=== PATIENT | female | born 1950 | race Caucasian/White ===

== ENCOUNTER → 2018-01-23 08:50 | Outpatient (CLI) | payer MEDICARE, MEDICAID, SELFPAY ==
--- NOTE | 2018-01-23 08:56 | XR_ITS ---
XR DEXA axial skeleton HISTORY: ITS.REASON: POST MENOPAUSAL ORDERING PHYSICIAN: Elver Lim MD PATIENT AGE: 67 years FINDINGS: The BMD measured at the lumbar spineis 0.723 g/cm squared with a T score of -3.8. This is considered osteoporotic according to the World Health Organization criteria. Fracture risk is high. Treatment recommended. The mean hip density has a T score of -2.6 also consistent with osteoporosis.. IMPRESSION: Osteoporosis with high fracture risk. Treatment recommended. Suggest progress exam January 2019
== END ==
PROVIDERS: Family Provider Internal Medicine Adolescent Medicine; PCP Internal Medicine Adolescent Medicine; Visit Provider Internal Medicine Adolescent Medicine
DX: Z78.0 Asymptomatic menopausal state (principal); Z13.820 Encounter for screening for osteoporosis
CPT/HCPCS: 77080

== ENCOUNTER → 2018-04-17 12:30 | Outpatient (CLI) | payer MEDICARE, MEDICAID, SELFPAY ==
--- NOTE | 2018-04-17 12:39 | XR_ITS ---
EXAM: XR lumbar spine min 4V HISTORY: ITS.REASON: MACHANICAL LOW BACK PAIN ORDERING PHYSICIAN: Elver Lim MD PATIENT AGE: 67 years COMPARISON: None FINDINGS: Normal alignment. No fracture or dislocation. No lytic or blastic change. Minimal endplate hypertrophic changes are present superiorly at L3 and L4. There slight increased density along the superior endplate of L3 but no significant compressive change. The disc spaces are well-preserved. IMPRESSION: Minimal degenerative change, no acute finding
--- NOTE | 2018-04-17 12:39 | XR_ITS ---
XR chest 2V HISTORY: ITS.REASON: CHEST WALL PAIN ORDERING PHYSICIAN: Elver Lim MD PATIENT AGE: 67 years COMPARISON: None FINDINGS: The cardiomediastinal silhouette and pulmonary vascularity are within normal limits. The lungs are clear without infiltrates, suspicious nodules, or pleural effusions. No acute bony abnormalities. IMPRESSION: Negative chest, no acute finding
--- NOTE | 2018-04-17 12:39 | XR_ITS ---
EXAM: XR thoracic spine 3V HISTORY: ITS.REASON: ACUTE BILAT THORACIC BACK PAIN Comparison: None FINDINGS: There is minimal mid thoracic curvature convex right. No fracture or dislocation. No significant degenerative change. No lytic or blastic change. IMPRESSION: Minimal dextroscoliosis otherwise negative
== END ==
PROVIDERS: PCP Internal Medicine Adolescent Medicine; Visit Provider Internal Medicine Adolescent Medicine
DX: M54.5 Low back pain (principal); M54.6 Pain in thoracic spine; R07.89 Other chest pain
CPT/HCPCS: 71046; 72072; 72110

== ENCOUNTER → 2020-09-03 09:27 | Outpatient (CLI) | payer MEDICARE, MEDICAID, SELFPAY ==
[2020-09-03 12:39] LABS: Chloride 103 mmol/L (98-107); Sodium 134 mmol/L (136-145)
[2020-09-03 12:40] LABS: Potassium 4.5 mmoL/L (3.5-5.1)
[2020-09-03 12:42] LABS: Blood Urea Nitrogen 16 mg/dl (7-17)
[2020-09-03 12:43] LABS: Anion Gap 13.5 mEq/L (5-15); Calcium 9.4 mg/dl (8.4-10.2); Carbon Dioxide 22 mmol/L (22.0-30.0); Estimated Glomerular Filt Rate 82 ml/min (>60); GFR (African American) 100 ML/MIN (>60); Glucose 86 mg/dl (74-100)
== END ==
PROVIDERS: Visit Provider Internal Medicine Adolescent Medicine
DX: E87.1 Hypo-osmolality and hyponatremia (principal)
CPT/HCPCS: 36415; 80048

== ENCOUNTER → 2020-10-12 13:40 | Outpatient (CLI) | payer MEDICARE, MEDICAID, SELFPAY ==
--- NOTE | 2020-10-12 13:44 | MR_ITS ---
PROCEDURE: MR HEAD/BRAIN WO CON CLINICAL INDICATION: HEADACHE DISORDER Pt c/o vertigo x 2 weeks with h/a and dizziness COMPARISON: No exams were available for comparison TECHNIQUE: Routine multiplanar multi echo sequences are performed without gadolinium enhancement. FINDINGS: No evidence of acute infarction. No midline shift mass effect intracranial hemorrhage or hydrocephalus. The cerebellopontine angles, cerebellum, midbrain, and brainstem have an unremarkable appearance. There are few nonspecific T2 white matter hyperintensities suggesting minimal ischemic gliotic change from microvascular disease. 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 The pituitary, optic chiasm, corpus callosum, and craniocervical junction have an unremarkable appearance. No mastoid effusion or sinus air-fluid level. There is mild generalized atrophy. IMPRESSION: No acute intracranial findings. Thornwaldt cyst Dictated by: Sarbjit Yost MD 10/14/2020 10:31 Sarbjit Yost MD in [place] 10/14/2020 10:31
--- NOTE | 2020-10-12 14:24 | CA_ITS ---
APPROVED REPORT Technician Assistant: Ebony Swain RVT Laterality: Bilateral Study Quality: Good Indications: Dizziness and Vertigo Risk Factors Hypertension: Smoking Doppler Spectral Velocity Analysis ECA (R) 108.00/14.50 cm/s ECA (L) 93.20/18.30 cm/s dICA (R) 102.80/27.00 cm/s dICA (L) 92.30/29.10 cm/s Rosey (R) 106.90/23.90 cm/s Rosey (L) 112.30/42.40 cm/s pICA (R) 97.30/18.20 cm/s pICA (L) 80.70/22.50 cm/s dCCA (R) 66.30/18.20 cm/s dCCA (L) 73.20/17.50 cm/s pCCA (R) 74.90/15.00 cm/s pCCA (L) 110.60/31.60 cm/s Vert (R) 40.80/8.30 cm/s Vert (L) 61.60/19.10 cm/s ICA/CCA 1.61 ICA/CCA 1.53 Findings Study suggests 20-49% stenosis of the right internal cartoid artery. Study suggests 20-49% stenosis of the left internal cartoid artery. Antegrade flow seen bilateral vertebral arteries. Conclusion Study suggests 20-49% stenosis of the right internal cartoid artery. Study suggests 20-49% stenosis of the left internal cartoid artery. Antegrade flow seen bilateral vertebral arteries. Electronically signed by : Sarbjit Yost MD 10/12/2020 18:50:16
== END ==
PROVIDERS: PCP Internal Medicine Adolescent Medicine; Visit Provider Internal Medicine Adolescent Medicine
DX: R42 Dizziness and giddiness (principal); R51.9 Headache, unspecified
CPT/HCPCS: 70551; 93880

== ENCOUNTER → 2021-01-25 13:40 | Outpatient (CLI) | payer MEDICARE, MEDICAID, SELFPAY ==
--- NOTE | 2021-01-25 13:42 | XR_ITS ---
PROCEDURE: XR DEXA AXIAL SKELETON CLINICAL HISTORY: OSTEOPOROSIS COMPARISON: [facility] DEX[facility]X XR DEXA axial skeleton from 01/23/2018 FINDINGS: The right hip BMD is 0.624 with a T-score of -2.0. The left hip BMD is 0.615 with a T-score of -2.7. The lumbar spine BMD is 0.703 with a T-score of -3.1. Previously the lowest bone density was in the spine with a T-score of -3.8 IMPRESSION: This patient is considered osteoporotic according to the World Health Organization criteria. Fracture risk is high. Treatment is advised. Based on these results a follow-up exam is recommended in 1 year. Dictated by: Sarbjit Yost MD 01/27/2021 08:25 Sarbjit Yost MD in [place] 01/27/2021 08:25
== END ==
PROVIDERS: PCP Internal Medicine Adolescent Medicine; Visit Provider Internal Medicine Adolescent Medicine
DX: M81.0 Age-related osteoporosis without current pathological fracture (principal)
CPT/HCPCS: 77080

== ENCOUNTER 2021-06-28 10:36 | Emergency (ER) | payer MEDICARE, MEDICAID, SELFPAY ==
--- NOTE | 2021-06-28 10:47 | XR_ITS ---
PROCEDURE: XR RIBS LT MIN 3V W CXR1V CLINICAL INDICATION: trauma Posttraumatic pain COMPARISON: CR CXR2V XR chest 2V from 04/17/2018 FINDINGS: Frontal view of the chest shows no acute finding. There is mild prominence of the interstitial markings. Multiple views the left ribs show no obvious fracture. No lytic or blastic change. IMPRESSION: No acute findings. Dictated by: Sarbjit Yost MD 06/28/2021 11:38 Sarbjit Yost MD in [place] 06/28/2021 11:38
--- NOTE | 2021-06-28 10:47 | XR_ITS ---
PROCEDURE: XR SHOULDER LT MIN 2V CLINICAL INDICATION: trauma COMPARISON: No exams were available for comparison FINDINGS: No fracture or dislocation. No lytic or blastic change. There is normal mineralization. Subchondral lucency noted at the base of the greater tuberosity medially suggesting a small geode. Other findings:None. IMPRESSION: Small geode of the humeral head otherwise negative Dictated by: Sarbjit Yost MD 06/28/2021 11:59 Sarbjit Yost MD in [place] 06/28/2021 11:59
[2021-06-28 10:50] VITALS: BP 154/103; PULSE 74; RESP 16; TEMP 36.6; O2SAT 98; BMI 21.9
--- NOTE | 2021-06-28 11:01 | XR_ITS ---
PROCEDURE: XR HUMERUS LT CLINICAL INDICATION: trauma Pain COMPARISON: No exams were available for comparison FINDINGS: No fracture or dislocation. No lytic or blastic change. There is normal mineralization. The joint spaces are well-preserved. No significant degenerative/arthritic changes. No erosive changes evident. Other findings:None. IMPRESSION: No acute findings. Dictated by: Sarbjit Yost MD 06/28/2021 11:50 Sarbjit Yost MD in [place] 06/28/2021 11:50
--- NOTE | 2021-06-28 11:16 | HMH.EDFALL ---
ED Disposition Clinical Impression: Rib pain on left side Accidental fall Qualifiers: Encounter type: initial encounter Qualified Code(s): W19.XXXA - Unspecified fall, initial encounter Disposition: Home, Self-Care Condition on Discharge: Good Instructions: DI for Rib Contusion Prescriptions: Hydrocod/Acet 5/325 mg [[place] 5/325mg tablet] 1 tab PO Q6HP PRN #10 tab PRN Reason: Moderate Pain Transmission Status: Sent to [facility] Referrals: Elver Lim MD [Primary Care Provider] - - Critical Care Critical Care Time: No Attestation: On 06/28/21, the high probability of a clinically significant, sudden or life threatening deterioration of the following system(s) required my full and direct attention, intervention and personal management. The time I documented below is in addition to time spent performing reported procedures but includes the following listed in this critical care notation. Medical Decision Making - Medical Records Medical records reviewed: Yes: I reviewed the patient's medical records. - Gee Inquiry Pt receiving controlled substance: No Vital Signs: 06/28/21 10:50 Temperature 97.9 F Temperature Source Oral Pulse Rate [Right Radial] 74 Respiratory Rate 16 Blood Pressure [Right Arm] 154/103 H Blood Pressure Mean [Right Arm] 120 Blood Pressure Source [Right Arm] Automatic Cuff Blood Pressure Position [Right Arm] Sitting 02 Sat by Pulse Oximetry 98 Oxygen Delivery Method Room Air Orders (Tests/Meds): ED MEDICATIONS Discontinued Medications Generic Name Dose Route Start Last Admin Trade Name Freq PRN Reason Stop Dose Admin Acetaminophen 1,000 mg 06/28/21 10:47 Acetaminophen 500mg Tab PO 06/28/21 10:48 ONCE ONE - Radiology Data #1 Image(s): Shoulder, Humerus, Other (ribs) Image Reviewed: Yes I reviewed the patient's radiology results, Yes I reviewed the patient's radiology image, Yes I have reviewed radiologist's interpretation IMPRESSION: No acute findings. IMPRESSION: Small geode of the humeral head otherwise negative IMPRESSION: No acute findings. - Reevaluation(s) Time: 12:06 Reevaluation #1: On reevaluation, the patient is feeling better. No evidence of fracture. Pain is improved. Patient is ambulatory. Repeat neuro exam is normal. Patient be discharged with short course of analgesics. She will need to follow-up with the PCP in 48 hours. Given strict return precautions. Verbalized understanding. Medical Decision Narrative: 70-year-old female presenting after accidental fall on Saturday. Concern for fracture. Imaging obtained. Analgesics provided. Fall HPI - General Chief Complaint: Fall Stated Complaint: AO 06-24-21, left shoulder pain Time Seen by Provider: 06/28/21 10:55 Mode of Arrival: Ambulatory Limitations: No Limitations Description of Symptoms (Recalled from ER Triage Doc. by RN): pt c/o L shoulder and upper arm pain. Pt reports fall on saturday r/t vertigo. - History of Present Illness HPI Narrative: This is a 70-year-old female presented to the emergency department with some pain in her arm and chest wall since Saturday. The patient states that she has a longstanding history of vertigo. She was walking home from a friend's house on Saturday when she tripped and fell onto her left side. She landed on her left chest wall and left arm. She states that she went home and was feeling okay, however the pain is progressed throughout the last few days. She states the pain is worse when she tries to move it or push on it. She did not lose consciousness during the event. She not sustained any head trauma. No seizure-like activity. At this time she denies any headache or change in vision. No focal weakness. Complaining of abdominal pain in her left upper arm, shoulder and left-sided chest wall. She is not having shortness of breath, cough or hemoptysis. No abdominal pain or vomiting. No diarr
[2021-06-28 12:29] VITALS: BP 154/103; PULSE 74; RESP 16; TEMP 36.6; O2SAT 98
== END 2021-06-28 12:30 | disposition home or self-care (01) ==
PROVIDERS: Emergency Provider Emergency Medicine; PCP Internal Medicine Adolescent Medicine
DX: R07.81 Pleurodynia (principal); W01.0XXA Fall on same level from slipping, tripping and stumbling without subsequent striking against object, initial encounter; Y92.480 Sidewalk as the place of occurrence of the external cause; Z88.0 Allergy status to penicillin
CPT/HCPCS: 71101; 73030; 73060; 99282

== ENCOUNTER 2022-05-12 09:21 | Emergency (ER) | payer MEDICARE, MEDICAID, SELFPAY ==
[2022-05-12 09:30] VITALS: BP 131/73; PULSE 68; RESP 19; TEMP 36.8; O2SAT 98; BMI 22.5
[2022-05-12 09:51] VITALS: BP 131/73; PULSE 68; RESP 19; TEMP 36.8; O2SAT 98
--- NOTE | 2022-05-12 10:01 | HMH.EDUTC ---
[facility] Disposition Clinical Impression: Sore gums Otitis media Qualifiers: Otitis media type: suppurative Chronicity: acute Laterality: right Recurrence: non-recurrent Spontaneous tympanic membrane rupture: without spontaneous rupture Qualified Code(s): H66.001 - Acute suppurative otitis media without spontaneous rupture of ear drum, right ear Disposition: Home, Self-Care Condition on Discharge: Good Instructions: Middle Ear Infection Additional Instructions: Start antibiotic as soon as possible and be sure to take as ordered for full length of time even though he should start feeling better in 24-48 hours. Tylenol or Motrin as needed for pain or fever Encourage fluids, water, Gatorade, Powerade, Pedialyte if /toddler/child Warm compresses often helps when placed over ear Return immediately for new or worsening symptoms no noticeable improvement in 48-72 hours and in 10-14 days to ensure the ears are return to baseline. Follow-up with primary care Prescriptions: cephALEXin [Cephalexin 500mg Tab] 500 mg PO BID 10 Days #20 tab Transmission Status: Pending to [facility] Referrals: Elver Lim MD [Primary Care Provider] - Time of Disposition: 10:10 Medical Decision Making - Gee Inquiry Pt receiving controlled substance: No Vital Signs: 05/12/22 09:30 05/12/22 09:51 Temperature 98.3 F 98.3 F Temperature Source Oral Pulse Rate 68 Pulse Rate [Right Brachial] 68 Respiratory Rate 19 19 Blood Pressure 131/73 Blood Pressure [Right Arm] 131/73 Blood Pressure Mean [Right Arm] 92 Blood Pressure Source [Right Arm] Automatic Cuff Blood Pressure Position [Right Arm] Sitting 02 Sat by Pulse Oximetry 98 Oxygen Delivery Method Room Air [facility] [place] HPI - General Chief complaint: Urgent Treatment Center Stated complaint: ear pain, cant swallow Time Seen by Provider: 05/12/22 10:01 Mode of Arrival: Ambulatory Source of Information: Patient Limitations: No Limitations Description of Symptoms (Recalled from Triage Doc. by RN): PATIENT C/O SORE THROAT AND RIGHT EAR PAIN SINCE YESTERDAY HEENT Symptoms (Recalled from RN notes): Yes Resp Symptoms (Recalled from RN notes): No Skin Symptoms (Recalled from RN notes): No MS Symptoms (Recalled from RN notes): No Functional Status (Recalled from RN notes): WNL - History of Present Illness Provider Complaint: 71 yr old female presnets for rt ear pain and pain with swallowing. pt states the pain started yesterday and has gotten worse over night. pt states she also has a sore area on her gum from her new dentures. - Related Data Previous Rx's Medication Instructions Recorded Hydrocod/Acet 5/325 mg [[place] 1 tab PO Q6HP PRN #10 tab 06/28/21 5/325mg tablet] cephALEXin [Cephalexin 500mg Tab] 500 mg PO BID 10 Days #20 tab 05/12/22 Allergies Allergy/AdvReac Type Severity Reaction Status Date / Time Penicillins [PENICILLINS] Allergy Unknown Verified 05/12/22 09:50 - Worker's Comp Is this a Worker's Comp case?: No [facility] History - Hepatitis A Screen Attestation statement:: This patient has been screened for Hepatitis A risk factors. I have reviewed the patient's past medical history: Yes - Social History Alcohol Intake: never Occupational Status: other ROS Obtained: Yes Systems reviewed as appropriate & no additional complaints - Constitutional Constitutional: Reports system reviewed and no additional complaints, except as docu, Denies fever(s) - Eyes Eyes: Reports system reviewed and no additional complaints, except as docu, Denies dry eyes - ENT Ears, Nose, Mouth, and Throat: Reports system reviewed and no additional complaints, except as docu, Reports as per HPI, Reports difficulty swallowing, Reports otalgia, Reports sore throat - Cardiovascular Cardiovascular: Reports system reviewed and no additional complaints, except as docu, Denies chest pain - Respiratory Respiratory: Reports system reviewed and no additional comp
[2022-05-12 10:20] LABS: UTC Strep Screen (Rapid) Negative (Negative)
== END 2022-05-12 10:19 | disposition home or self-care (01) ==
PROVIDERS: Emergency Provider Nurse Practitioner Family; PCP Internal Medicine Adolescent Medicine
DX: H66.001 Acute suppurative otitis media without spontaneous rupture of ear drum, right ear (principal); J02.9 Acute pharyngitis, unspecified; K06.9 Disorder of gingiva and edentulous alveolar ridge, unspecified; F17.200 Nicotine dependence, unspecified, uncomplicated; Z79.52 Long term (current) use of systemic steroids; Z88.0 Allergy status to penicillin; Z71.6 Tobacco abuse counseling
CPT/HCPCS: 87880; 99213; G0463

== ENCOUNTER → 2022-10-18 06:53 | Outpatient (CLI) | payer MEDICARE, MEDICAID, SELFPAY | PROVIDERS: PCP Nurse Practitioner Family; Visit Provider Nurse Practitioner Family | DX: R30.0 Dysuria (principal); B96.1 Klebsiella pneumoniae [K. pneumoniae] as the cause of diseases classified elsewhere | CPT/HCPCS: 87086; 87088; 87186 ==

== ENCOUNTER 2024-04-10 12:50 | Emergency (ER) | payer MEDICARE, MEDICAID, SELFPAY ==
[2024-04-10 12:52] VITALS: BP 164/80; PULSE 72; RESP 18; TEMP 36.8; O2SAT 95; BMI 21.1
[2024-04-10 13:00] VITALS: BP 137/67; PULSE 79; RESP 18; O2SAT 99
--- NOTE | 2024-04-10 13:12 | CT_ITS ---
FINAL REPORT CLINICAL HISTORY: fall, polytrauma/back pain FINDINGS: Axial CT images of the cervical spine were obtained without contrast. Sagittal and coronal reformatted images were also obtained. This study was performed with techniques to keep radiation doses as low as reasonably achievable (ALARA). Individualized dose reduction techniques using automated exposure control or adjustment of mA and/or kV according to the patient's size were employed. There is no evidence of fracture or dislocation. There is mild anterolisthesis of L3 on 4 and L4 on 5. Mild degenerative changes are present. There is no evidence of canal stenosis. No paraspinous soft tissue abnormality is seen. IMPRESSION: No fracture or acute bony abnormality identified. Reviewed, Interpreted and Dictated by Gerardo Castañeda III, MD Transcribed by Latisha Mccall Authenticated and [facility]
--- NOTE | 2024-04-10 13:12 | CT_ITS ---
FINAL REPORT TECHNIQUE: After the administration of intravenous contrast, axial images through the chest were performed by computed tomography.This study was performed with techniques to keep radiation doses as low as reasonably achievable, (ALARA). Individualized dose reduction techniques using automated exposure control or adjustment of mA and/or kV according to the patient''s size were employed. CLINICAL HISTORY: fall, polytrauma/back pain FINDINGS: There is no axillary adenopathy. There are small mediastinal nodes. The heart size is normal. There is no pericardial or pleural effusion. There is moderate emphysema and pulmonary scarring. There are focal nodular opacities bilaterally, some is felt to represent scarring. There is a 6 mm nodule in the superior segment of the right lower lobe well seen on image 39. There is an 8 mm left apical nodule well seen on image 13. There is no pneumothorax. The chest wall appears intact. IMPRESSION: Pulmonary nodules as above. Recommend follow-up CT and/or PET-CT. Reviewed, Interpreted and Dictated by Gerardo Castañeda III, MD Transcribed by Ltaisha Mccall Authenticated and [facility]
--- NOTE | 2024-04-10 13:12 | CT_ITS ---
FINAL REPORT CLINICAL HISTORY: fall, polytrauma/back pain FINDINGS: CT OF THE ABDOMEN AND PELVIS WITH CONTRAST Axial CT images of the abdomen and pelvis were obtained after the administration of oral and iv contrast. Coronal reformatted images were also obtained and reviewed.This study was performed with techniques to keep radiation doses as low as reasonably achievable (ALARA). Individualized dose reduction techniques using automated exposure control or adjustment of mA and/or kV according to the patient's size were employed. Abdomen: The liver has an unremarkable appearance, without evidence of mass or biliary ductal dilatation. There is mild nonspecific gallbladder wall thickening. The spleen is unremarkable. There is mild adrenal gland enlargement, favor hyperplasia. The pancreas has an unremarkable appearance. There are multiple small bilateral renal masses. Some are consistent with simple cysts while others do not have the appearance of simple cysts and may represent complex cysts or neoplastic. The largest on the left, laterally, measures 11 mm. There is scarring in the lower pole of the left kidney. A 5 mm stone is seen in the lower pole of the left kidney. The aorta is normal in caliber. There is no free fluid or adenopathy. There is no evidence of hemoperitoneum. Pelvis: The GI tract demonstrates no obstruction. There is diffuse colon wall thickening which is likely inflammatory. There is descending and sigmoid colon diverticulosis. The appendix is not well-visualized. The urinary bladder is unremarkable.There is a 2.7 cm cystic left ovarian mass which may represent a cyst versus most likely, cystic neoplasm. There is sclerosis of the third sacral segment favored to represent a subacute to chronic fracture. IMPRESSION: No evidence of acute organ injury or hemoperitoneum. Multiple bilateral renal masses. Some do not appear to be simple cysts and could be further evaluated with renal mass protocol CT. Left ovarian cystic mass may represent a cyst versus, most likely, cystic neoplasm. Follow-up ultrasound in 3 to 6 months is recommended. Reviewed, Interpreted and Dictated by Gerardo Castañeda III, MD Transcribed by Mary Sanford Authenticated and [facility]
--- NOTE | 2024-04-10 13:12 | CT_ITS ---
FINAL REPORT CLINICAL HISTORY: fall, polytrauma/back pain FINDINGS: Axial images of the head were obtained without contrast. Coronal reformatted images were also obtained. This study was performed with techniques to keep radiation doses as low as reasonably achievable (ALARA). Individualized dose reduction techniques using automated exposure control or adjustment of mA and/or kV according to the patient''s size were employed. There is generalized age-appropriate atrophy. Periventricular low-attenuation areas are seen consistent with mild chronic ischemic changes. There is no evidence of intracranial hemorrhage or mass. There is no evidence of acute infarct. There is no evidence of shift of the midline structures. No skull abnormality is seen on the bone window images. IMPRESSION: Atrophy and mild periventricular chronic ischemic changes. No acute intracranial abnormality identified. Reviewed, Interpreted and Dictated by Gerardo Castañeda III, MD Transcribed by Latisha Mccall Authenticated and [facility]
--- NOTE | 2024-04-10 13:15 | HMH.EDGENADL ---
Discharge Plan Disposition Chief Complaint: Fall Prescriptions Prescriptions: New ibuprofen 600 mg tablet 600 mg PO Q8H PRN (Reason: pain) 7 Days Qty: 21 0RF cyclobenzaprine 5 mg tablet 5 mg PO TID PRN (Reason: muscle spasm) 5 Days Qty: 15 0RF No Action levothyroxine 88 mcg tablet 88 mcg PO DAILY pravastatin 40 mg tablet 40 mg PO DAILY paroxetine HCl 40 mg tablet 40 mg PO DAILY quetiapine 25 mg tablet 50 mg PO HS amlodipine 2.5 mg tablet 2.5 mg PO DAILY alendronate 70 mg tablet 70 mg PO WEEKLY calcium carbonate-vitamin D3 500 mg(1,250mg) -50 unit capsule 1 cap PO DAILY cephalexin 500 mg capsule 500 mg PO BID 7 Days Qty: 14 0RF Referrals Follow up/Referrals: Elver Lim MD [Primary Care Provider] - See instructions Activity Restrictions/Add. Instructions Additional Instructions/Restrictions: No evidence of significant traumatic abnormalities including spine fracture or rib fractures. Please take your anti-inflammatory medication muscle relaxer as needed for the symptoms. Incidentally however we have found multiple pulmonary nodules, bilateral renal masses and a left adnexal mass all of which could be associated with metastatic cancer. This is not for sure is recommended that you follow-up to get a PET scan and discuss further these findings with your primary care doctor if you would like. Clinical Impressions Clinical Impression: Back contusion, Fall, Indeterminate pulmonary nodules, Bilateral renal masses, Adnexal mass Discharge ED Provider: Lisa Guerrero General Adult HPI General Chief complaint: Fall Stated complaint: AO 04/11 930 Fall back pain Time Seen by Provider: 04/10/24 13:05 Mode of Arrival: Ambulatory Source of Information: Patient Limitations: No Limitations Description of Symptoms (Recalled from ER Triage Doc. by RN): Patient reports slipping and falling down a step on her front porch. Complaint of back pain. History of Present Illness HPI narrative: 73-year-old female presents today with back and thoracic pain after a fall. She states she is very healthy generally. She was walking on a wet deck and slipped and fell onto her back and has severe pain in her mid thoracic and right thoracic location. She did not definitively her head or neck but fell directly onto her back. Not on any anticoagulants or blood thinners. Denies any extremity injuries or pain. Related Data Home Medications Medication Instructions Recorded Confirmed alendronate 70 mg tablet 70 mg PO WEEKLY osteoporosis 05/17/22 10/18/22 amlodipine 2.5 mg tablet 2.5 mg PO DAILY HTN 05/17/22 10/18/22 levothyroxine 88 mcg tablet 88 mcg PO DAILY thyroid 05/17/22 10/18/22 paroxetine HCl 40 mg tablet 40 mg PO DAILY depression 05/17/22 10/18/22 pravastatin 40 mg tablet 40 mg PO DAILY HLD 05/17/22 10/18/22 quetiapine 25 mg tablet 50 mg PO HS 05/17/22 10/18/22 calcium carbonate-vitamin D3 500 1 cap PO DAILY 10/18/22 10/18/22 mg (1,250 mg)-50 unit capsule Previous Rx's Medication Instructions Recorded cephalexin 500 mg capsule 500 mg PO BID 7 days #14 caps 10/18/22 cyclobenzaprine 5 mg tablet 5 mg PO TID PRN muscle spasm 5 04/10/24 days #15 tabs ibuprofen 600 mg tablet 600 mg PO Q8H PRN pain 7 days #21 04/10/24 tabs Allergies Allergy/AdvReac Type Severity Reaction Status Date / Time Penicillins [PENICILLINS] Allergy Unknown Verified 10/18/22 10:08 [facility] Disclaimer: The information contained in this section may have been updated after the patient was seen, as this information can be updated by other users. Medical History (Updated 04/10/24 @ 15:23 by Lisa Guerrero MD) Anxiety Depression Hypertension Surgical History (Updated 10/18/22 @ 10:12 by Carolina Varela LPN) History of hysterectomy H/O tubal ligation Family History Father Cancer Social History Smoking Status: Unknown if ever smoked alcohol intake: never substance use type: denies use current occupational status: retired Travel in the last 8 weeks: None household members: none housing: house ROS Obtained: Yes All systems reviewed & no additional complaints except as documented Physical Exam General General appearance: in distress (And pain) Head Head exam: atraumatic and normocephalic Neck Neck exam: Absent tenderness Chest Chest inspection: Present normal inspection and tenderness (Right posterior lateral thoracic tenderness) Respiratory Respiratory exam: Present normal lung sounds bilaterally; Absent respiratory distress Cardiovascular Cardiovascular exam: Present regular rate and normal rhythm Abdominal Exam Abdominal exam: Present soft; Absent distention or tenderness Back Exam Back exam: Present tenderness (Midline thoracic spine tenderness) Neurological Exam Neurological exam: Present alert and oriented X3 Medical Decision Making Gee Inquiry Pt receiving controlled substance: No Vital Signs: 04/10/24 12:52 04/10/24 13:00 04/10/24 14:01 Temperature 98.2 F Temperature Source Oral Pulse Rate 79 68 Pulse Rate [Radial] 72 Respiratory Rate 18 18 Blood Pressure 137/67 157/66 H Blood Pressure [Right Arm] 164/80 H Blood Pressure Mean 89 Blood Pressure Mean [Right Arm] 108 Blood Pressure Source [Right Arm] Automatic Cuff Blood Pressure Position [Right Arm] Sitting 02 Sat by Pulse Oximetry 95 99 97 Oxygen Delivery Method Room Air Lab Data Lab results reviewed: Yes I reviewed the patient's lab results. Lab Results 04/10/24 13:21: WBC 13.1 H, RBC 3.80 L, Hgb 13.9, Hct 37.8, MCV 99.6 H, MCH 36.5 H, MCHC 36.7 H, RDW 13.8, Plt Count 335, MPV 8.2, Neut % (Auto) 83.4 H, Lymph % (Auto) 9.7 L, [place] % (Auto) 6.1, Eos % (Auto) 0.3, Baso % (Auto) 0.5, Neut # (Auto) 10.9 H, Lymph # (Auto) 1.3, [place] # (Auto) 0.8, Eos # (Auto) 0.0, Baso # (Auto) 0.1, PT 11.0, INR 0.98, APTT 24.9, Sodium 133 L, Potassium 4.5, Chloride 105, Carbon Dioxide 24, Anion Gap 8.5, BUN 11, Creatinine 0.80, Estimated Creat Clear 47, Estimated GFR 70, Est GFR ( Amer) 85, Glucose 109 H, Calcium 9.6, Total Bilirubin 0.3, AST 33, ALT 26, Alkaline Phosphatase 87, Total Protein 7.2, Albumin 4.4, Globulin 2.8, Albumin/Globulin Ratio 1.6 04/10/24 14:25: Urine Color Yellow, Urine Appearance Clear, Urine pH 7.0, Ur Specific [place] 1.010, Urine Protein Negative, Urine Glucose (UA) Negative, Urine Ketones Negative, Urine Blood Negative, Urine Nitrate Negative, Urine Bilirubin Negative, Urine Urobilinogen 1.0, Ur Leukocyte Esterase Negative, Urine RBC Occasional, Urine WBC None, Ur Squamous Epith Cells 3-5, Urine Bacteria Trace, Urine Mucus Trace 04/10/24 13:21 04/10/24 13:21 Orders (Tests/Meds): ED MEDICATIONS Discontinued Medications Generic Name Dose Route Start Last Admin Trade Name Freq PRN Reason Stop Dose Admin Acetaminophen 1,000 mg 04/10/24 13:12 04/10/24 13:24 Acetaminophen 1,000mg/100ml Vial IV 04/10/24 13:13 1,000 mg ONCE ONE Administration Lactated Ringer's 1,000 mls @ 999 mls/hr 04/10/24 13:15 04/10/24 13:24 Lactated Ringer's 1000 Ml Bag IV 04/10/24 14:15 999 mls/hr .Q1H1M JENNIFER Administration Iopamidol 75 ml 04/10/24 13:41 04/10/24 13:41 Iopamidol-370 (76%);100ml Bottle IV 04/10/24 13:42 75 ml ONCE ONE Administration Sodium Chloride 10 ml 04/10/24 13:41 04/10/24 13:41 Sodium Chloride 0.9% 10ml Syr (Rad Only) IV 04/10/24 13:42 10 ml ONCE ONE Administration ORDERS Category Date Time Status CT abdomen pelvis w con Stat Cat Scan 04/10/24 13:[address] cervical spine wo con Stat Cat Scan 04/10/24 13:[address] chest w con Stat Cat Scan 04/10/24 13:[address] head/brain wo con Stat Cat Scan 04/10/24 13:12 Completed CBC w/Auto Diff [Complete Blood Count Auto Diff] Stat Lab 04/10/24 13:21 Completed CMP [Comprehensive Metabolic Panel] Stat Lab 04/10/24 13:21 Completed PT/PTT Stat Lab 04/10/24 13:21 Completed UA [Urinalysis and Microscopic] Stat Lab 04/10/24 14:25 Completed Medical Decision Narrative: 73-year-old with fall from standing with legs going out from under her falling directly onto the posterior aspect of her body with severe thoracic and chest wall tenderness. Will get trauma scans given the mechanism and her age. I do not suspect that she has any vascular injury pocket CTAs but contrasted CT chest abdomen pelvis. Patient denies wanting any opiates therefore give her IV Tylenol and IV fluids and reassess. Reassessed 323 patient feeling much better CT scans performed which I personally interpreted which shows no acute abnormality specifically no evidence of any spine fracture rib fractures. However multiple incidental findings were found on radiology which include bilateral renal masses left adnexal mass and multiple pulmonary nodules. This is possible metastatic disease she is aware of this I have advised that she follow-up for an outpatient PET scan. She states that her age she likely will not follow-up as she does not want to go through any treatment but is aware of these findings. I will treat her from a traumatic standpoint for back contusion with anti-inflammatory medication muscle relaxers return precautions emphasized he was discharged in stable condition. Family also at the bedside for conversations regarding possible cancer. Critical Care Critical Care Time Critical Care Time: Yes Attestation: On 04/10/24, the high probability of a clinically significant, sudden or life threatening deterioration of the following system(s) required my full and direct attention, intervention and personal management. The time I documented below is in addition to time spent performing reported procedures but includes the following listed in this critical care notation. Total Time Total Critical Care Time: 35
[2024-04-10] MEDS: ACETAMINOPHEN 1,000MG/100ML VIAL 1000 MG IV (13:24)
[2024-04-10] MEDS: LACTATED RINGERS 1000ML 1,000 ML 999 ML IV (13:24)
--- NOTE | 2024-04-10 13:30 | PC.NURSE ---
Pt gone to RAD
--- NOTE | 2024-04-10 13:39 | HMH.ITSTN ---
GFR completion/results were overrode by ER physician, Dr. Guerrero, on a risk vs. benefit situation for this patient. ER physician also signed contrast consent form.
[2024-04-10] MEDS: IOPAMIDOL-370 (76%);100ML BOTTLE 75 ML IV (13:41)
[2024-04-10] MEDS: SODIUM CHLORIDE 0.9% 10ML SYR (RAD ONLY) 10 ML IV (13:41)
[2024-04-10 13:46] LABS: Chloride 105 mmol/L (98-107); Sodium 133 mmol/L (136-145)
[2024-04-10 13:47] LABS: Potassium 4.5 mmoL/L (3.5-5.1)
[2024-04-10 13:49] LABS: Alanine Aminotransferase 26 U/L (12-78); Alkaline Phosphatase 87 U/L (38-126); Aspartate Amino Transferase 33 U/L (14-36); Bilirubin,Total 0.3 mg/dl (0.2-1.3); Blood Urea Nitrogen 11 mg/dl (7-17); Creatinine Clearance Estimated 47 mL/min (50-200); Estimated Glomerular Filt Rate 70 ml/min (>60); GFR (African American) 85 ML/MIN (>60)
[2024-04-10 13:50] LABS: Albumin Level 4.4 g/dl (3.5-5.0); Albumin/Globulin Ratio 1.6 (1.1-1.8); Anion Gap 8.5 mEq/L (5-15); Calcium 9.6 mg/dl (8.4-10.2); Carbon Dioxide 24 mmol/L (22.0-30.0); Globulin 2.8 g/dL (1.3-3.2); Glucose 109 mg/dl (74-100); Total Protein,Serum 7.2 g/dl (6.3-8.2)
[2024-04-10 14:01] VITALS: BP 157/66; PULSE 68; O2SAT 97
[2024-04-10 14:06] VITALS: BP 152/78; PULSE 68; RESP 18; O2SAT 98
[2024-04-10 14:06] LABS: Basophils # 0.1 K/mm3 (0-0.2); Basophils % 0.5 % (0.1-2.0); Eosinophils % 0.3 % (0.1-12.0); Hematocrit 37.8 % (37.0-47.0); Hemoglobin 13.9 g/dL (12.2-16.2); Lymphocytes # 1.3 K/mm3 (0.7-4.5); Lymphocytes % 9.7 % (10-50); Mean Corpuscular HGB Conc 36.7 g/dL (31.8-35.4); Mean Corpuscular Hemoglobin 36.5 pg (27.0-31.2); Mean Corpuscular Volume 99.6 fl (81-99); Mean Platelet Volume 8.2 fl (7.4-10.4); Monocytes # 0.8 K/mm3 (0.1-1.0); Monocytes % 6.1 % (1.7-9.3); Neutrophils # 10.9 K/mm3 (1.8-7.8); Neutrophils % 83.4 % (37.0-80.0); Platelet Count 335 K/mm3 (142-424); Red Cell Distribution Width 13.8 % (11.5-17.5); White Blood Count 13.1 K/mm3 (4.8-10.8)
--- NOTE | 2024-04-10 14:06 | PC.NURSE ---
Pt returned from RAD
--- NOTE | 2024-04-10 14:09 | PC.NURSE ---
pt up to bathroom to attempt for a urine sample
[2024-04-10 14:10] LABS: Activated Partial Thrombo Time 24.9 seconds (22.8-30.6); INR 0.98 (0.9-1.1)
[2024-04-10 14:31] LABS: Microscopic, Urine URINE MICROSCOPIC (MICROSCOPIC)
[2024-04-10 14:41] LABS: Appearance,Urine CLEAR (Clear); Bilirubin,Urine Negative (Negative); Blood, Urine Negative (Negative); Color,Urine YELLOW (Yellow); Glucose,Urine (UA) Negative (Negative); Ketones,Urine Negative (Negative); Leukocyte Esterase,Urine Negative (Negative); Nitrate,Urine Negative (Negative); Protein,Urine Negative (Negative)
[2024-04-10 14:54] LABS: Bacteria,Urine Trace /lpf; Mucus,Urine Trace /lpf; RBC,Urine Occasional #/hpf (0-3)
[2024-04-10 15:27] VITALS: BP 160/73; PULSE 68; RESP 16; O2SAT 98
[2024-04-10 15:32] VITALS: BP 160/73; PULSE 68; RESP 18; TEMP 36.7; O2SAT 98
== END 2024-04-10 15:33 | disposition home or self-care (01) ==
PROVIDERS: Emergency Provider Student in an Organized Health Care Education/Training Program; PCP Internal Medicine Adolescent Medicine
DX: M54.6 Pain in thoracic spine (principal); S20.223A Contusion of bilateral back wall of thorax, initial encounter; N94.89 Other specified conditions associated with female genital organs and menstrual cycle; N28.89 Other specified disorders of kidney and ureter; R91.8 Other nonspecific abnormal finding of lung field; I10 Essential (primary) hypertension; W01.10XA Fall on same level from slipping, tripping and stumbling with subsequent striking against unspecified object, initial encounter
CPT/HCPCS: 70450; 71260; 72125; 74177; 80053; 81001; 85025; 85610; 85730; 96361; 96374; 99285; J0131; J7120; Q9967

== ENCOUNTER 2024-10-31 09:01 | Outpatient (CLI) | payer MEDICARE, MEDICAID, SELFPAY ==
--- NOTE | 2024-10-31 09:15 | XR_ITS ---
PROCEDURE INFORMATION: Exam: XR Right Foot Exam date and time: 10/31/2024 9:16 AM Age: 74 years old Clinical indication: Swelling, leg or foot TECHNIQUE: Imaging protocol: Radiologic exam of the right foot. Views: 3 or more views. COMPARISON: CR XR ANKLE RT 2V 10/31/2024 9:16 AM FINDINGS: Bones/joints: hindfoot-midfoot and midfoot-forefoot articulations are normal. phalanges without an acute process. subtalar joint and the tibiotalar joint appears normal. Tiny fracture fragment of approximately 4 mm at the base of the 5th metatarsal. Small avulsion fragment suspected. Mild edema in the soft tissues. Soft tissues: See Bones/joints finding. IMPRESSION: Tiny fracture fragment of approximately 4 mm at the base of the 5th metatarsal. Small avulsion fragment suspected. Mild edema in the soft tissues. Age indeterminate. Correlate regarding tenderness.
--- NOTE | 2024-10-31 09:15 | XR_ITS ---
PROCEDURE INFORMATION: Exam: XR Right Ankle Exam date and time: 10/31/2024 9:16 AM Age: 74 years old Clinical indication: Swelling, leg or foot TECHNIQUE: Imaging protocol: Radiologic exam of the right ankle. Views: 1 or 2 views. COMPARISON: CR XR FOOT RT MIN 3V 10/31/2024 9:16 AM FINDINGS: Bones/joints: medial and lateral malleoli are normal. Ankle mortise is symmetrical. No fracture. Hindfoot is unremarkable. Tibiotalar joint and the subtalar joint appears normal. Spur formation at the insertion of the plantar aponeurosis. Soft tissues: . Mild edema anterior to the tibiotalar joint. Mild edema in the soft tissues inferior to the calcaneal spur IMPRESSION: Normal osseous ankle other than spur formation at the insertion of the plantar aponeurosis.
== END 2024-10-31 23:59 | disposition home or self-care (01) ==
LOC: RAD 09:04
PROVIDERS: PCP Internal Medicine Adolescent Medicine; Visit Provider Internal Medicine Adolescent Medicine
DX: M79.89 Other specified soft tissue disorders (principal)
CPT/HCPCS: 73600; 73630